=== PATIENT | male | born 1960 | race Two or more races ===

== ENCOUNTER 2020-08-31 07:37 | Emergency (ER) | payer OTHER ==
[~2020-08-31] VITALS: Ht 175.3 cm; Wt 107.3 kg
[2020-08-31] MEDS ORDERED: TAMS-13 PO (08:15)
[2020-08-31] MEDS ORDERED: METF-960 PO (08:15)
[2020-08-31] MEDS ORDERED: ATOR10TA84 PO (08:15)
[2020-08-31] MEDS ORDERED: FINA-27 PO (08:15)
[2020-08-31] MEDS ORDERED: ALBU8HFA IH (08:15)
[2020-08-31] MEDS ORDERED: LISI-892 PO (08:15)
[2020-08-31] MEDS ORDERED: MONT-35 PO (08:15)
[2020-08-31 09:19] LABS: BASOPHILS % (AUTO) 0.4 % (0.0-2.0); EOSINOPHILS % (AUTO) 1.4 % (1.0-6.0); HEMATOCRIT 52.8 % (41-53); HEMOGLOBIN 17.1 g/dL (13.5-17.5); LYMPHOCYTES # (AUTO) 1.2 K/uL (1.0-4.8); LYMPHOCYTES % (AUTO) 8.4 % (22.0-44.0); MEAN CORPUSCULAR HEMOGLOBIN 30.4 pg (26.0-34.0); MEAN CORPUSCULAR HGB CONC 32.5 G/dL (31.0-37.0); MEAN CORPUSCULAR VOLUME 94 fL (80-100); MONOCYTES # (AUTO) 0.7 K/uL (0.1-1.0); MONOCYTES % (AUTO) 5.4 % (2.0-9.0); NEUTROPHILS # (AUTO) 11.6 K/uL (1.8-7.7); NEUTROPHILS % (AUTO) 84.4 % (40.0-70.0); PLATELET COUNT (AUTO) 207 K/uL (150-450); RED BLOOD CELL COUNT(AUTO) 5.64 MIL/uL (4.50-5.90); RED CELL DISTRIBUTION WIDTH 14.2 % (11.5-14.5)
[2020-08-31 09:33] LABS: ANION GAP 8 mmol/L (8-16); CALCIUM, TOTAL 8.8 mg/dL (8.8-10.5); CARBON DIOXIDE 25 mmol/L (22-29); CHLORIDE 103 mmol/L (98-107); CREATININE 1.01 mg/dL (0.60-1.30); GLOMERULAR FILTR. RATE CALC > 60 mL/min (>60); GLUCOSE,RANDOM 172 mg/dL (70-110); SODIUM SERUM 136 mmol/L (136-145); UREA NITROGEN, BLOOD 16 mg/dL (7-18)
[2020-08-31 09:36] LABS: ALANINE AMINOTRANSFERASE 32 U/L (12-78); ALBUMIN 3.8 g/dL (3.4-5.0); ALKALINE PHOSPHATASE 67 U/L (46-116); ASPARTATE AMINOTRANSFERASE 20 U/L (15-37); B-TYPE NATRIURETIC PEPTIDE < 5 pg/mL (0-100); BILIRUBIN,TOTAL 0.3 mg/dL (0.1-1.0)
[2020-08-31] MEDS ORDERED: IOHEXOL 350 MG/ML 75 ML VIAL ONE (10:46)
[2020-08-31] MEDS ORDERED: SODIUM CHLORIDE 0.9% 100 ML ONE (10:46)
[2020-08-31 13:17] VITALS: BP 130/94
== END 2020-08-31 13:55 | disposition home or self-care (01) ==
LOC: EMS 07:40
DX: R60.0 Localized edema (principal); E11.65 Type 2 diabetes mellitus with hyperglycemia; J45.909 Unspecified asthma, uncomplicated; E78.00 Pure hypercholesterolemia, unspecified; I10 Essential (primary) hypertension; Z79.84 Long term (current) use of oral hypoglycemic drugs; Z79.899 Other long term (current) drug therapy
CPT/HCPCS: 36415; 70450; 70491; 71045; 80053; 83880; 84484; 85025; 93005; 99285; A9575; J7050